=== PATIENT | male | born 1975 | race Caucasian/White ===

== ENCOUNTER 2023-07-04 08:57 | Inpatient (IN) | payer OTHER ==
[~2023-07-04] VITALS: Ht 182.9 cm; Wt 84.8 kg
[2023-07-04] VITALS (11 sets, daily range): BP systolic 132–170; BP diastolic 67–96
[2023-07-04] MEDS ORDERED: GABA100 PO (09:29)
[2023-07-04 10:18] LABS: BASOPHILS ABSOLUTE AUTO 0.03 K/mm3 (0.00-0.23); BASOPHILS PERCENT AUTO 0 % (0-2); EOSINOPHILS PERCENT AUTO 0 % (0-6); Hematocrit 51.3 % (37.0-53.0); Hemoglobin 17.3 g/dL (13.5-17.5); IMMATURE GRAN ABSOLUTE AUTO 0.11 K/mm3 (0.00-0.10); IMMATURE GRAN PERCENT AUTO 1 % (0-1); LYMPHOCYTES ABSOLUTE AUTO 1.19 K/mm3 (0.84-5.20); LYMPHOCYTES PERCENT AUTO 7 % (21-46); MONOCYTES ABSOLUTE AUTO 1.26 K/mm3 (0.16-1.47); MONOCYTES PERCENT AUTO 7 % (4-13); Mean Corpuscular HGB 31.1 pg (26.0-34.0); Mean Corpuscular HGB Conc 33.7 g/dL (31.5-36.5); Mean Corpuscular Volume 92 fL (80-100); Mean Platelet Volume 9.9 fL (9.1-12.4); NEUTROPHILS ABSOLUTE AUTO 14.59 K/mm3 (1.96-9.15); NEUTROPHILS PERCENT AUTO 85 % (41-73); Platelet Count 327 K/mm3 (150-400); RDW Coefficient Variation 12.2 % (11.7-14.2); RDW Standard Deviation 41.8 fL (35.1-46.3); Red Blood Cell Count 5.56 M/mm3 (4.30-5.90); White Blood Cell Count 17.18 K/mm3 (4.00-11.30)
[2023-07-04 10:40] LABS: Base Excess Venous -24.1 mmol/L; Bicarbonate Venous 9.7 mmol/L (24.0-30.0); PCO2 Venous 20.3 mmHg (38-42)
[2023-07-04 10:41] LABS: pH Blood Venous 7.08 (7.34-7.37)
[2023-07-04 11:01] LABS: Albumin, Blood 4.9 g/dL (3.4-5.0); Albumin/Globulin Ratio 1.1 (0.8-1.8); Bilirubin, Direct 0.1 mg/dL (0.0-0.3); Bilirubin, Indirect 0.6 mg/dL (0.1-0.7); Bilirubin, Total 0.7 mg/dL (0.1-1.0); Bun/Creatinine Ratio 27.5 (12.0-20.0); Calcium, Blood 9.4 mg/dL (8.5-10.1); Creatinine, Blood 0.87 mg/dL (0.60-1.20); Globulin, Blood 4.6 g/dL (2.2-4.0); Potassium, Blood 4.3 mmol/L (3.5-5.5); Total Protein, Blood 9.5 g/dL (6.4-8.2)
[2023-07-04 11:57] LABS: Beta-hydroxybutyrate 93.2 mg/dL (0.2-2.8)
[2023-07-04 13:51] LABS: Source, Urine Clean Catch
[2023-07-04 13:57] LABS: Appearance, Urine Clear (Clear); Bilirubin, Urine Neg (Neg); Blood, Urine 1+ (Neg); Glucose Qualitative, Urine 4+ (Neg); Ketones, Urine 4+ (Neg); Leukocyte Esterase, Urine Neg (Neg); Nitrite, Urine Neg (Neg); Protein, Urine 2+ (Neg); Urobilinogen, Urine NORM (Normal)
[2023-07-04 14:04] LABS: Color, Urine Pale Yellow (P-Yellow)
[2023-07-04 14:05] LABS: Bacteria Rare /hpf; Red Blood Cells, Urine 0-2 /hpf (0-2); Squamous Epithelial Cells Not Seen /hpf (Few); White Blood Cells, Urine 0-2 /hpf (0-5)
[2023-07-04 15:18] LABS: Anion Gap 17 mmol/L (6-16); Blood Urea Nitrogen 22 mg/dL (8-24); Chloride, Blood 108 mmol/L (98-108); Creatinine, Blood 0.79 mg/dL (0.60-1.20); Glomerular Filtration Rate 111 (60-); Glucose, Blood 269 mg/dL (70-99); Phosphorus, Blood 2.3 mg/dL (2.5-4.9); Potassium, Blood 4.6 mmol/L (3.5-5.5)
[2023-07-04 15:19] LABS: CO2, Blood 9 mmol/L (21-32); Sodium, Blood 134 mmol/L (136-145)
[2023-07-04] MEDS ORDERED: STEGLATRO5 MG PO (16:32)
--- NOTE | 2023-07-04 17:42 | NUR ---
SHIFT SUMMARY: NEURO: PATIENT ALERT AND ORIENTED X4. PATIENT DENIES NUMBNESS/TINGLING. PATIENT MOVING ALL LIMBS EQUALLY. PATIENT ABLE TO STAND AND TRANSFER FROM GURNEY TO BED WITHOUT DIFFICULTY OR DIZZINESS. PATIENT REPORTS LACK OF SLEEP FOR 4 DAYS AND HIGH LEVELS OF FATIGUE. PATIENT FALLS ASLEEP QUICKLY. CARDIAC: PATIENT DENIES CHEST PAIN OR PRESSURE. PATIENT IN NORMAL SINUS TO SINUS TACH DURING THE SHIFT. BY THE END OF THE SHIFT, HR MORE CONSISTENTLY IN THE 90S. SBP INCONSISTENT, BUT ELEVATED AT TIMES, FROM 140S TO 160S). RESPIRATORY: PATIENT STABLE ON ROOM AIR. SPO2 >96%. NO SHORTNESS OF BREATH NOTED. PATIENT DENIES DIFFICULTY. PATIENT DENIES NAUSEA. PATIENT DENIES CONSTIPATION OR DIFFICULTY VOIDING. D5 WITH 1/2NS 20MEQKCL AT 150 MLS/HR. PATIENT RECEIVED 2 BOLUSES OF NS SINCE ADMISSION. PATIENT COMPLETING BAG OF LR AT 200 STARTING IN THE ER. INSULIN GTT CURRENTLY AT 4 UNITS/HOUR. PSYCHSOCIAL: PATIENT CALM AND COOPERATIVE.
[2023-07-04 19:32] LABS: Magnesium, Blood 2.2 mg/dL (1.6-2.4)
[2023-07-04 19:36] LABS: Albumin, Blood 3.5 g/dL (3.4-5.0); Anion Gap 11 mmol/L (6-16); Blood Urea Nitrogen 17 mg/dL (8-24); Bun/Creatinine Ratio 25.1 (12.0-20.0); CO2, Blood 14 mmol/L (21-32); Calcium, Blood 7.5 mg/dL (8.5-10.1); Chloride, Blood 113 mmol/L (98-108); Creatinine, Blood 0.68 mg/dL (0.60-1.20); Glomerular Filtration Rate 116 (60-); Glucose, Blood 177 mg/dL (70-99); Phosphorus, Blood 1.6 mg/dL (2.5-4.9); Potassium, Blood 3.7 mmol/L (3.5-5.5); Sodium, Blood 138 mmol/L (136-145)
[2023-07-04 22:59] LABS: Albumin, Blood 3.6 g/dL (3.4-5.0); Anion Gap 9 mmol/L (6-16); Blood Urea Nitrogen 15 mg/dL (8-24); Bun/Creatinine Ratio 25.9 (12.0-20.0); CO2, Blood 16 mmol/L (21-32); Calcium, Blood 7.8 mg/dL (8.5-10.1); Chloride, Blood 113 mmol/L (98-108); Creatinine, Blood 0.58 mg/dL (0.60-1.20); Glomerular Filtration Rate 122 (60-); Glucose, Blood 215 mg/dL (70-99); Magnesium, Blood 2.2 mg/dL (1.6-2.4); Phosphorus, Blood 1.6 mg/dL (2.5-4.9); Potassium, Blood 4.1 mmol/L (3.5-5.5); Sodium, Blood 138 mmol/L (136-145)
[2023-07-05] VITALS (15 sets, daily range): BP systolic 126–162; BP diastolic 64–92
[2023-07-05 04:16] LABS: Albumin, Blood 3.3 g/dL (3.4-5.0); Anion Gap 8 mmol/L (6-16); Beta-hydroxybutyrate 21.6 mg/dL (0.2-2.8); Blood Urea Nitrogen 11 mg/dL (8-24); Bun/Creatinine Ratio 18.2 (12.0-20.0); CO2, Blood 19 mmol/L (21-32); Calcium, Blood 7.7 mg/dL (8.5-10.1); Chloride, Blood 111 mmol/L (98-108); Creatinine, Blood 0.61 mg/dL (0.60-1.20); Glomerular Filtration Rate 120 (60-); Glucose, Blood 160 mg/dL (70-99); Magnesium, Blood 2.2 mg/dL (1.6-2.4); Phosphorus, Blood 1.5 mg/dL (2.5-4.9); Potassium, Blood 3.1 mmol/L (3.5-5.5); Sodium, Blood 138 mmol/L (136-145)
--- NOTE | 2023-07-05 05:27 | NUR ---
SHIFT SUMMARY PT A/O X 4. CALM AND COOPERATIVE WITH CARE. VSS. HTN AT TIMES. SR RATE 80'S AT REST, UP TO 120'S WITH MOVEMENT. PT ON INSULIN AND D51/2NS T/O NIGHT. SEE EMAR. HOSP CALLED AT BEGINNING OF SHIFT FOR LAB RESULTS AND ORDERS RECEIVED FOR 40MEQ OF KCL AND 15MM OF SODIUM PHOSPHATE. HOSP NOTIFIED OF 2230 LAB RESULTS APPRPX 2348. NO ORDERS RECEIVED. HOSP CALLED AGAIN REGARDING AM LABS. ORDER TO STOP INSULIN AND D5 1/2 NS, AND GIVE 20MM OF POTASSIUM PHOS. ORDER TO RECHECK LABS AT 0745. PT IND IN ROOM, TURNS SELF SIDE TO SIDE IN BED. STANDS AT BEDSIDE TO USE URINAL. WILL REPORT OFF TO ONCOMING RN.
--- NOTE | 2023-07-05 06:20 | NUR ---
UPDATE CBG THIS AM 135 AFTER STOPPING INSULIN AND D51/2NS. CALL TO HOSP AND ORDER RECEIVED TO CHANGE DIET FROM NPO TO ADA. PT DENIES N/V AT THIS TIME AND GIVEN SNACK.
--- NOTE | 2023-07-05 07:00 | NUR ---
ASSUME CARE: I have assumed care of this patient.
[2023-07-05 09:33] LABS: Magnesium, Blood 2.1 mg/dL (1.6-2.4); Phosphorus, Blood 2.3 mg/dL (2.5-4.9)
[2023-07-05 09:36] LABS: Albumin, Blood 3.5 g/dL (3.4-5.0); Anion Gap 14 mmol/L (6-16); Blood Urea Nitrogen 9 mg/dL (8-24); Bun/Creatinine Ratio 17.2 (12.0-20.0); CO2, Blood 15 mmol/L (21-32); Calcium, Blood 8.2 mg/dL (8.5-10.1); Chloride, Blood 107 mmol/L (98-108); Creatinine, Blood 0.52 mg/dL (0.60-1.20); Glomerular Filtration Rate 126 (60-); Glucose, Blood 201 mg/dL (70-99); Phosphorus, Blood 2.2 mg/dL (2.5-4.9); Potassium, Blood 3.1 mmol/L (3.5-5.5); Sodium, Blood 136 mmol/L (136-145)
[2023-07-05 13:52] LABS: Bun/Creatinine Ratio 17.8 (12.0-20.0); Calcium, Blood 8.2 mg/dL (8.5-10.1); Creatinine, Blood 0.56 mg/dL (0.60-1.20)
[2023-07-05] MEDS ORDERED: LISI5 PO (15:11)
--- NOTE | 2023-07-05 16:00 | NUR ---
DISCHARGE: Pt wheeled out of hospital to private vehicle via wheelchair by [employer] MACHINE OPERATOR. He was provided discharge education and packet. He verbalized understanding and agreement to instructions. Rx faxed to pharmacy.
== END 2023-07-05 16:07 | disposition home or self-care (01) | DRG 638 ==
LOC: ER 08:57 → ICUE 15:12
PROVIDERS: Student in an Organized Health Care Education/Training Program; ADMIT Internal Medicine
DX: E11.10 Type 2 diabetes mellitus with ketoacidosis without coma (principal); E87.1 Hypo-osmolality and hyponatremia; E86.0 Dehydration; R94.31 Abnormal electrocardiogram [ECG] [EKG]; F12.90 Cannabis use, unspecified, uncomplicated; E83.39 Other disorders of phosphorus metabolism; E87.6 Hypokalemia; I10 Essential (primary) hypertension; M54.9 Dorsalgia, unspecified; G89.29 Other chronic pain; Z98.52 Vasectomy status; Z88.0 Allergy status to penicillin; Z79.899 Other long term (current) drug therapy
CPT/HCPCS: 36415; 71046; 74177; 80048; 80069; 80076; 81001; 82010; 82803; 82947; 83036; 83690; 83735; 84100; 85025; 93005; 93010; 96361; 96365-59; 96366; 96367; 96375; 99285-25; A9270; J1790; J1815; J1885; J2405; J2765; J3475; J3480; J7030; J7040; J7042; J7050; J7060; J7120; Q9967